=== PATIENT | male | born 2000 | race Caucasian/White ===

== ENCOUNTER 2022-08-24 10:18 | Emergency (ER) | payer BC, SELFPAY ==
--- NOTE | 2022-08-24 10:21 | ECG_ITS ---
Measurements Intervals [place] Rate: 71 P: 84 AK: 148 QRS: 87 QRSD: 97 T: 79 QT: 372 QTc: 404 Interpretive Statements SINUS RHYTHM WITH SINUS ARRHYTHMIA INCOMPLETE RIGHT BUNDLE BRANCH BLOCK BASELINE ARTIFACT- I, II ,AVR, AVL, AVF, V3 BORDERLINE ECG NO PREVIOUS ECG AVAILABLE FOR COMPARISON Electronically Signed On 08-24-2022 10:49:54 DIRECTOR WRITING by George Samaniego D.O.
[2022-08-24 10:40] VITALS: BP 111/67; PULSE 80; RESP 20; TEMP 37.3; O2SAT 100
[2022-08-24 10:50] LABS: Basophils Percent Auto 0.6 % (0.2-1.2); Eosinophils Absolute Auto 0.1 K/mm3 (0-0.3); Eosinophils Percent Auto 1.4 % (0-4.4); Hematocrit 42.2 % (42.0-52.0); Hemoglobin 14.1 g/dL (14.0-18.0); Immature Granulocyte Absolute 0.01 K/mm3 (0.00-0.031); Immature Granulocyte Percent A 0.2 % (0-0.5); Lymphocytes Absolute Auto 2.56 K/mm3 (0.9-3.2); Lymphocytes Percent Auto 40.8 % (18.3-44.2); Mean Corpuscular HGB Conc 33.4 g/dl (32-36); Mean Corpuscular Hemoglobin 28.1 pg (26-34); Mean Corpuscular Volume 84.2 fl (80-100); Mean Platelet Volume 9.2 fl (7.4-10.4); Monocytes Absolute Auto 0.6 K/mm3 (0.1-0.6); Monocytes Percent Auto 9.3 % (2.6-8.5); Neutrophils Percent Auto 47.7 % (45.5-73.1); Platelet Count Result 281 k/mm3 (150-375); Red Blood Count 5.01 M/mm3 (4.6-6.20); Red Cell Distribution Width 12.6 % (11.5-14.5); White Blood Count 6.3 K/mm3 (4.5-10.0)
[2022-08-24 11:04] LABS: Alanine Aminotransferase 18 U/L (6-50); Albumin Level 4.9 g/dL (3.5-5.1); Alkaline Phosphatase 60 U/L (38-126); Anion Gap 15 mmol/L (8-16); Aspartate Amino Transferase 27 U/L (17-59); Bilirubin,Total 0.8 mg/dL (0.2-1.3); Blood Urea Nitrogen 11 mg/dL (9-20); Calcium 9.2 mg/dL (8.4-10.2); Carbon Dioxide 27 mmol/L (22-30); Chloride 100 mmol/L (98-107); Estimated CRCL calculation 105 ml/min; Estimated Glomerular Filt Rate > 60; Glucose 73 mg/dL (65-110); Potassium 3.4 mmol/L (3.4-5.0); Sodium 142 mmol/L (137-145)
[2022-08-24 11:31] VITALS: BP 114/56; PULSE 66; RESP 12; O2SAT 100
[2022-08-24] MEDS: SODIUM CHLORIDE 0.9% IV 1,000 ML 999 ML IV CONT (11:31)
[2022-08-24 11:59] LABS: Magnesium 1.9 mg/dL (1.6-2.3)
[2022-08-24 12:13] LABS: Troponin I < 0.012 ng/mL (0.000-0.034)
--- NOTE | 2022-08-24 13:42 | PC.NURSE ---
pt refusing XRAY and CT scan. pt educated on the importance of getting imaging taken. pt still refusing.
--- NOTE | 2022-08-24 14:44 | ED.GENADULT ---
HPI - General Adult General Chief complaint: Arrhythmia/Palpitations Stated complaint: dizziness with palpitations x several days Time Seen by Provider: 08/24/22 10:50 Source: RN notes reviewed History of Present Illness HPI narrative: Patient presents emergency department from home for heart palpitations. Patient states symptoms began 2 days ago. He states at times he feels like his heart is racing at times he does feel his heart beating very strongly in his chest states has been associated with feelings of dizziness like the room spinning he also notes that he has tingling in his bilateral hands and feet he denies chest pain shortness of breath abdominal pain nausea vomiting or any other symptoms. States that the palpitations are intermittent and only lasts a few seconds and resolve states he does have a history of anxiety and had been on medication but is stopped taking the medication he denies any palpitations or dizziness at this time Related Data Allergies Allergy/AdvReac Type Severity Reaction Status Date / Time No Known Allergies Allergy Verified 08/24/22 10:19 Review of Systems Review of Systems: Gen.: Denies fevers or chills Eyes: Denies eye pain or visual change ENT: Denies congestion Respiratory: Denies shortness of breath or cough CV: Denies chest pain reports palpitation GI: Denies abdominal pain nausea, emesis or diarrhea Musculoskeletal: Denies any back or joint Neuro: Reports dizziness and numbness and tingling to the bilateral hands and feet Skin: Denies rash Except as documented, all other systems reviewed and negative [facility] Past Medical History Medical History (Updated 08/24/22 @ 14:48 by Maikel Orozco DO) Anxiety Social History Social History (Updated 08/24/22 @ 14:46 by Maikel Orozco DO) Smoking status: Never smoker Exam Narrative: APPEARANCE: No acute distress, nontoxic, resting in bed EYES: EOMI, PERRL HEENT: Normocephalic, atraumatic, TMs clear bilaterally nares patent RESPIRATORY: No respiratory distress Clear to auscultation bilaterally with no rhonchi wheezing or rales. CARDIOVASCULAR: Regular rate and rhythm without murmurs rubs or gallops. ABDOMINAL: Soft, nontender, nondistended, no rebound or guarding MUSCULOSKELETAl: Moves all extremities. No clubbing, cyanosis or edema. NEURO: Awake and alert x 4. Following commands, speech normal, no facial droop, muscle strength 5 out of 5 in the bilateral upper and lower extremities SKIN:: Warm, dry. No rashes lesions or abrasions PSYCHIATRIC: Normal affect/mood, Course Course Emergency Course: Patient is refusing CT scan of the head and chest x-ray at this time. He is concerned about the cost I discussed with the patient risks and benefits including strokes pneumothorax pneumonia and other etiologies including the possibilities of he understands all these risks and continues to refuse at this time Patient remained on cardiac specialist throughout stay in ED with no arrhythmias noted Discussed with patient results of workup and diagnosis. Discussed need for follow-up with primary care, proper use of medication, and reasons to return to the emergency department. Patient understands and agrees to current treatment plan Vital Signs Vital signs: Vital Signs Temperature 99.1 F 08/24/22 10:40 Pulse Rate 80 08/24/22 10:40 Respiratory Rate 20 08/24/22 10:40 Blood Pressure 111/67 08/24/22 10:40 Pulse Oximetry 100 08/24/22 10:40 Oxygen Delivery Room Air 08/24/22 10:40 Temperature 99.1 F 08/24/22 10:40 Pulse Rate 66 08/24/22 11:31 Respiratory Rate 12 08/24/22 11:31 Blood Pressure 114/56 L 08/24/22 11:31 Pulse Oximetry 100 08/24/22 11:31 Oxygen Delivery Room Air 08/24/22 10:40 Medical Decision Making [facility] Narrative Medical decision making narrative: Patient presents for palpitations dizziness and tingling bilateral hands and feet history of anxiety work-up in the ED her includes a normal
[2022-08-24 15:03] LABS: Appearance Urine Clear (Clear); Bilirubin Urine Negative (Negative); Blood Urine Trace-intact (Negative); Color Urine Yellow (Yellow); Glucose Urine UA Negative (Negative); Ketones Urine Negative (Negative); Leukocyte Esterase Ur Negative LEU/UL (Negative); Nitrate Urine Negative (Negative); Protein Urine Negative (Negative); Specific Grav Ur 1.015 (1.001-1.035); Urobilinogen Urine 0.2 mg/dL (<2.0); pH Urine 7.5 (5.0-9.0)
[2022-08-24 15:06] LABS: Bacteria Urine Trace /hpf; RBC Urine 0-2 /hpf (0-2); WBC Urine 0-3 /hpf
[2022-08-24 15:07] LABS: Add Urine Microscopic? YES
[2022-08-24 15:10] VITALS: BP 115/78; PULSE 89; RESP 16; O2SAT 99
== END 2022-08-24 15:11 | disposition home or self-care (01) ==
PROVIDERS: Emergency Provider Emergency Medicine
DX: R00.2 Palpitations (principal); F41.9 Anxiety disorder, unspecified; I45.10 Unspecified right bundle-branch block
CPT/HCPCS: 36415; 80053; 81001; 83735; 84484; 85025; 93005; 96360; 99284; J7030